=== PATIENT | female | born 1990 | race Caucasian/White ===

== ENCOUNTER 2016-04-16 13:56 | Emergency (ER) | payer OTHER ==
[~2016-04-16] VITALS: Ht 185.4 cm; Wt 127.7 kg
[2016-04-16 15:01] LABS: HEMATOCRIT 33.1 % (36.0-46.0); MCH 30.5 PG (29.0-34.0); MCHC 33.5 G/DL (30.0-36.0); MCV 90.9 FL (83-99); MEAN PLAT.VOLUME 9.5 uM^3 (9.5-12.4); PLATELET COUNT 339 K/uL (156-360); RBC DIS.WIDTH-CV 13.2 % (11.8-14.6); RBC DIS.WIDTH-SD 42.5 % (39-53); RED BLOOD COUNT 3.64 M/uL (3.80-5.20); WHITE BLOOD COUNT 12.6 K/uL (4.1-10.2)
[2016-04-16 15:11] LABS: CHLORIDE 108 mEq/L (99-109); POTASSIUM 3.9 mEq/L (3.7-5.4); SODIUM 136 mEq/L (136-147)
[2016-04-16 15:13] LABS: GLUCOSE 91 mg/dL (70-99)
[2016-04-16 15:15] LABS: ANION GAP 6 MEQ/L (2-14); TOTAL BILIRUBIN 0.2 mg/dL (0.0-1.0)
[2016-04-16 15:17] LABS: ALKALINE PHOSPHATASE 133 IU/L (3-129); GFR ESTIMATE (CALCULATED) > 59 mL/min/
[2016-04-16 15:18] LABS: UREA NITROGEN (BUN) 9 mg/dL (9-23)
[2016-04-16 15:56] LABS: ADD MIUA? YES; BILIRUBIN NEGATIVE; BLOOD SMALL; COLOR YELLOW ((YELLOW)); GLUCOSE (STRIP) NEGATIVE; KETONES NEGATIVE; LEUKOCYTES SMALL; NITRITE NEGATIVE; PROTEIN (STRIP) NEGATIVE; SPECIFIC GRAVITY 1.015 (1.000-1.030); UROBILINOGEN 0.2 MG/DL (0.2-1.0)
[2016-04-16 16:01] LABS: BACTERIA RARE /HPF; EPITHELIAL CELLS RARE /HPF; MUCUS TRACE /LPF; RED BLOOD CELLS 0-5 /HPF (0-5); WHITE BLOOD CELLS 0-5 /HPF (0-5)
[2016-04-16 16:50] VITALS: BP 127/64
== END 2016-04-16 16:51 | disposition home or self-care (01) ==
LOC: EME 13:56
PROVIDERS: Nurse Practitioner Family
DX: O26.893 Other specified pregnancy related conditions, third trimester (principal); R51 Headache; R11.0 Nausea
CPT/HCPCS: 80053; 81003; 85027; 99281; 99285; J2765; J7030

== ENCOUNTER 2016-05-01 04:39 | Inpatient (IN) | payer OTHER ==
[2016-05-01] VITALS (26 sets, daily range): BP systolic 97–149; BP diastolic 63–85
[~2016-05-01] VITALS: Ht 185.4 cm; Wt 126.0 kg
[2016-05-01] MEDS ORDERED: PRENATAL TABLE1 EAC3 PO (05:32)
[2016-05-01] MEDS ORDERED: ZYRTEC10 M2 PO (05:33)
[2016-05-01] MEDS ORDERED: ZOLOFT50 MG PO (05:33)
[2016-05-01] MEDS ORDERED: SINGULAIR10 MG PO (05:33)
[2016-05-01 05:44] LABS: EOSINOPHIL (%) 1.3 % (0-5); EOSINOPHIL COUNT 0.2 K/uL (0-0.3); HEMATOCRIT 31.9 % (36.0-46.0); IMMATURE GRANULOCYTE (%) 0.6 % (0.0-0.7); IMMATURE GRANULOCYTE COUNT 0.7 K/uL; MCH 30.7 PG (29.0-34.0); MCHC 33.9 G/DL (30.0-36.0); MCV 90.6 FL (83-99); MONOCYTE (%) 10.6 % (3-12); MONOCYTE COUNT 1.2 K/uL (0-0.8); NEUTROPHIL (%) 61.3 % (45-76); NEUTROPHIL COUNT 7.1 K/uL (1.8-6.4); PLATELET COUNT 310 K/uL (156-360); RBC DIS.WIDTH-CV 13.5 % (11.8-14.6); RBC DIS.WIDTH-SD 43.2 % (39-53); RED BLOOD COUNT 3.52 M/uL (3.80-5.20); WHITE BLOOD COUNT 11.7 K/uL (4.1-10.2)
[2016-05-01] MEDS ORDERED: MOTRIN800 MG PO (15:48)
[2016-05-02 07:46] VITALS: BP 131/76
[2016-05-02 15:00] VITALS: BP 119/76
[2016-05-02 22:29] VITALS: BP 128/73
[2016-05-03 07:12] VITALS: BP 116/74
== END 2016-05-03 13:10 | disposition home or self-care (01) | DRG 775 ==
LOC: LDRP-OP 04:39 → 2WEST 04:40 → LDRP-OP 06-08 15:38
PROVIDERS: Advanced Practice Midwife
DX: O42.02 Full-term premature rupture of membranes, onset of labor within 24 hours of rupture (principal); O69.81X0 Labor and delivery complicated by cord around neck, without compression, not applicable or unspecified; O99.344 Other mental disorders complicating childbirth; F32.9 Major depressive disorder, single episode, unspecified; O99.52 Diseases of the respiratory system complicating childbirth; J45.909 Unspecified asthma, uncomplicated; O99.214 Obesity complicating childbirth; E66.9 Obesity, unspecified; Z3A.39 39 weeks gestation of pregnancy; Z37.0 Single live birth; Z68.30 Body mass index [BMI] 30.0-30.9, adult
CPT/HCPCS: 85025; C1755; J0595; J3010; J7120

== ENCOUNTER 2016-11-03 19:36 | Observation (INO) | payer OTHER ==
[~2016-11-03] VITALS: Ht 185.4 cm; Wt 110.3 kg
[~2016-11-03 19:36] MED LIST: MOTRIN800 MG PO; PRENATAL TABLE1 EAC3 PO; SINGULAIR10 MG PO; ZOLOFT50 MG PO; ZYRTEC10 M2 PO
[2016-11-03 20:54] LABS: HEMATOCRIT 36.3 % (36.0-46.0); MCHC 33.3 G/DL (30.0-36.0); MCV 90.1 FL (83-99); MEAN PLAT.VOLUME 9.1 uM^3 (9.5-12.4); PLATELET COUNT 302 K/uL (156-360); RBC DIS.WIDTH-CV 12.5 % (11.8-14.6); RBC DIS.WIDTH-SD 41.8 % (39-53); RED BLOOD COUNT 4.03 M/uL (3.80-5.20); WHITE BLOOD COUNT 9.9 K/uL (4.1-10.2)
[2016-11-03 20:59] LABS: CHLORIDE 106 mEq/L (99-109); POTASSIUM 3.7 mEq/L (3.7-5.4); SODIUM 138 mEq/L (136-147)
[2016-11-03 21:01] LABS: GLUCOSE 94 mg/dL (70-99)
[2016-11-03 21:02] LABS: ANION GAP 9 MEQ/L (2-14)
[2016-11-03 21:04] LABS: GFR ESTIMATE (CALCULATED) > 59 mL/min/
[2016-11-03 21:05] LABS: UREA NITROGEN (BUN) 12 mg/dL (9-23)
[2016-11-03] MEDS ORDERED: CAMILA0.35 MG PO (21:06)
[2016-11-03 21:10] LABS: TROP-I INTERPRETATION NEGATIVE; TROPONIN-I 0.01 ng/mL (0.0-0.30)
[2016-11-03 21:12] LABS: QUANTITATIVE HCG < 4.0 MIU/ML
[2016-11-03 22:37] LABS: SERUM ETHYL ALCOHOL < 10 mg/dL
[2016-11-03 22:56] LABS: HDL CHOLESTEROL 39 MG/DL (Desirable>=50); LDL CHOLESTEROL 120 mg/dL (Desirable<100); NON-HDL CHOLESTEROL 144 mg/dL (Desirable<160); TOTAL CHOLESTEROL 183 mg/dL (Desirable<200); TRIGLYCERIDES 118 MG/DL (Normal: <150)
[2016-11-03 23:28] VITALS: BP 119/67
[2016-11-04 04:51] LABS: AMPHETAMINES QUANT VALUE 0 NG/ML; BARBITUATES QUANT VALUE 0 NG/ML; BENZODIAZEPINES QUANT VALUE 0 NG/ML; BENZODIAZEPINES, URINE SCREEN Negative (200 ng/mL); OPIATES QUANTITATIVE VALUE 0 NG/ML; PHENCYCLIDINE QUANT VALUE 0 NG/ML
[2016-11-04 06:30] LABS: Estimated Average Glucose 100 mg/dL (70-123); HEMOGLOBIN A1c (GLYCOHEMOGLOB) 5.1 % HGB (Below 5.7)
[2016-11-04 07:20] VITALS: BP 124/65
[2016-11-04 11:21] VITALS: BP 124/81
== END 2016-11-04 14:38 | disposition home or self-care (01) ==
LOC: EME 19:36 → EDOF 22:05 → ENRESERV 22:07 → 5WEST 23:16 → ENPENDDIS 11-04 → 5WEST 11-04 14:38
PROVIDERS: Emergency Medicine; Physician Assistant Medical
DX: R20.2 Paresthesia of skin (principal); R41.0 Disorientation, unspecified; G43.401 Hemiplegic migraine, not intractable, with status migrainosus; J45.909 Unspecified asthma, uncomplicated; F41.9 Anxiety disorder, unspecified; F32.9 Major depressive disorder, single episode, unspecified
CPT/HCPCS: 70450; 70551; 71020; 80048; 80061; 80306 90; 83036; 84484; 84702; 85027; 93005; 99281; 99285; G0378; G0480; J1200; J1650; J2765

== ENCOUNTER 2017-09-11 13:21 | Emergency (ER) | payer OTHER ==
[~2017-09-11] VITALS: Ht 185.4 cm; Wt 107.6 kg
[~2017-09-11 13:21] MED LIST changes: +CAMILA0.35 MG PO
[2017-09-11 13:25] VITALS: BP 132/74
[2017-09-11 13:58] LABS: HEMATOCRIT 38.8 % (36.0-46.0); HEMOGLOBIN 13.3 G/DL (11.9-15.5); MCH 31.8 PG (29.0-34.0); MCHC 34.3 G/DL (30.0-36.0); MCV 92.8 FL (83-99); PLATELET COUNT 312 K/uL (156-360); RBC DIS.WIDTH-CV 11.9 % (11.8-14.6); RBC DIS.WIDTH-SD 40.7 % (39-53); RED BLOOD COUNT 4.18 M/uL (3.80-5.20); WHITE BLOOD COUNT 10.1 K/uL (4.1-10.2)
[2017-09-11 14:06] LABS: CHLORIDE 105 mEq/L (99-109); POTASSIUM 4.1 mEq/L (3.7-5.4); SODIUM 138 mEq/L (136-147)
[2017-09-11 14:10] LABS: TOTAL BILIRUBIN 0.2 mg/dL (0.0-1.0)
[2017-09-11 14:20] LABS: QUANTITATIVE HCG < 4.0 MIU/ML
[2017-09-11 14:39] LABS: ALBUMIN 4.2 g/dL (3.2-4.8)
[2017-09-11 14:41] LABS: GLUCOSE 93 mg/dL (70-99); TOTAL PROTEIN 7.4 g/dL (6.4-8.3)
[2017-09-11 14:45] LABS: ALKALINE PHOSPHATASE 63 IU/L (3-129); CREATININE 0.8 mg/dL (0.6-1.3); GFR ESTIMATE (CALCULATED) > 59 mL/min/
[2017-09-11 14:46] LABS: UREA NITROGEN (BUN) 13 mg/dL (9-23)
[2017-09-11 14:47] LABS: AST (GOT) 17 IU/L (2-34)
[2017-09-11 14:48] LABS: ALT (GPT) 20 IU/L (3-49)
[2017-09-11 14:55] LABS: APPEARANCE CLEAR ((CLEAR)); BILIRUBIN NEGATIVE; BLOOD MODERATE; COLOR YELLOW ((YELLOW)); GLUCOSE (STRIP) NEGATIVE; KETONES NEGATIVE; LEUKOCYTES NEGATIVE; NITRITE NEGATIVE; PROTEIN (STRIP) NEGATIVE; SPECIFIC GRAVITY 1.019 (1.000-1.030); UROBILINOGEN 0.2 MG/DL (0.2-1.0)
[2017-09-11 15:05] LABS: BACTERIA RARE /HPF; EPITHELIAL CELLS RARE /HPF; MUCUS TRACE /LPF; UCUL ADDED? NO; WHITE BLOOD CELLS 0-5 /HPF (0-5)
== END 2017-09-11 14:00 | disposition left against medical advice (07) ==
LOC: EME 13:21
DX: R10.9 Unspecified abdominal pain (principal); Z53.21 Procedure and treatment not carried out due to patient leaving prior to being seen by health care provider
CPT/HCPCS: 80053; 81003; 84702; 85027